=== PATIENT | male | born 1975 | race Caucasian/White ===

== ENCOUNTER → 2017-02-17 | Outpatient (CLI) | payer BC ==
[~2017-02-17] MED LIST: LEVO100T7 PO; LEVO125T5 PO
--- NOTE | 2017-02-17 13:53 | DIAGNOSTIC IMAGING REPORT ---
THYROID ULTRASONOGRAPHY CLINICAL HISTORY: Thyroid carcinoma COMPARISON STUDY: No previous studies for comparison. FINDINGS: The patient is status post a prior thyroidectomy. No definite residual thyroid tissue is visualized. There are no pathologic masses within the thyroid bed. There are no pathologically enlarged lymph nodes. IMPRESSION: Postsurgical changes of a prior thyroidectomy. No suspicious masses or lymph nodes identified Electronically signed by: Sami Fam M.D. 02/17/2017 1:51 PM Dictated Date/Time: 02/17/2017 1:51 PM
== END | disposition home or self-care (01) ==
LOC: C.ULTRBC 13:15
PROVIDERS: ATTEND Internal Medicine
DX: C73 Malignant neoplasm of thyroid gland (principal)